=== PATIENT | female | born 1985 | race Caucasian/White ===

== ENCOUNTER 2018-05-27 15:42 | Emergency (ER) | payer SELFPAY ==
[2018-05-27 16:28] LABS: Bilirubin Negative (Negative); Blood, Urine Negative (Negative); Clarity CLEAR (Clear); Glucose, Urine (Dipstick) Negative (Negative); Leukocyte Negative (Negative); Nitrite Negative (Negative); Protein, Urine (Dipstick) Negative (Neg-Trace); Specific Gravity, Urine 1.019 (1.002-1.036); Urobilinogen 0.2 mg/dL (0.2-1.0); pH, Urine 5.5 (5.0-9.0)
[2018-05-27 16:30] LABS: Pregnancy Test - Urine (BHCG) Negative (Negative); Pregu Control Background? CLEAR/WHITE (CLR/WHITE); Pregu Control Bar Appear? YES (CONTROL BAR); Specific Gravity 1.019 (1.002-1.036)
[2018-05-27] MEDS ORDERED: Azithromycin 250 MG TAB ONE (17:33)
[2018-05-27] MEDS ORDERED: Lidocaine 1% (PF) 30 ML VIAL ONE (17:33)
[2018-05-27] MEDS ORDERED: cefTRIAXone\\ROCEPHIN 250 MG VIAL ONE (17:33)
[2018-05-27] MEDS ORDERED: Lidocaine 1% PF 5 ML VIAL ONE (17:37)
[2018-05-31 00:07] LABS: Chlamydia by PCR Not Detected (NotDetected); GC by PCR Not Detected (NotDetected)
== END 2018-05-27 19:23 | disposition home or self-care (01) ==
LOC: ERS 15:42
DX: N76.0 Acute vaginitis (principal); E03.9 Hypothyroidism, unspecified; F17.210 Nicotine dependence, cigarettes, uncomplicated
CPT/HCPCS: 81003; 81025; 87480; 87491; 87510; 87591; 87660; 96372; J0696; J2001

== ENCOUNTER 2018-09-18 04:58 | Emergency (ER) | payer SELFPAY ==
[2018-09-18 05:16] LABS: Bilirubin Negative (Negative); Blood, Urine Negative (Negative); Clarity Slightly Cloudy (Clear); Glucose, Urine (Dipstick) Negative (Negative); Leukocyte Negative (Negative); Nitrite Negative (Negative); Protein, Urine (Dipstick) Negative (Neg-Trace); Specific Gravity, Urine 1.025 (1.005-1.030); Urobilinogen 0.2 mg/dL (0.2-1.0); pH, Urine 5.5 (5.0-9.0)
[2018-09-18 05:17] LABS: Pregu Control Background? CLEAR/WHITE (CLR/WHITE); Pregu Control Bar Appear? YES (CONTROL BAR); Specific Gravity 1.025 (1.002-1.036)
[2018-09-18 05:18] LABS: Pregnancy Test - Urine (BHCG) Negative (Negative)
== END 2018-09-18 05:26 | disposition home or self-care (01) ==
LOC: SCSER 04:58
DX: N76.0 Acute vaginitis (principal); E03.9 Hypothyroidism, unspecified; F17.210 Nicotine dependence, cigarettes, uncomplicated
CPT/HCPCS: 81003; 81025; 99283

== ENCOUNTER 2018-11-28 16:33 | Emergency (ER) | payer SELFPAY ==
[2018-11-28 16:57] LABS: Bilirubin Negative (Negative); Blood, Urine Negative (Negative); Clarity CLEAR (Clear); Glucose, Urine (Dipstick) Negative (Negative); Leukocyte Negative (Negative); Nitrite Negative (Negative); Protein, Urine (Dipstick) Negative (Neg-Trace); Specific Gravity, Urine 1.026 (1.002-1.036); Urobilinogen 0.2 mg/dL (0.2-1.0); pH, Urine 5.5 (5.0-9.0)
[2018-11-28 17:02] LABS: Pregnancy Test - Urine (BHCG) Negative (Negative); Pregu Control Background? CLEAR/WHITE (CLR/WHITE); Pregu Control Bar Appear? YES (CONTROL BAR); Specific Gravity 1.026 (1.002-1.036)
== END 2018-11-28 21:08 | disposition left against medical advice (07) ==
LOC: ERS 16:33
DX: Z53.21 Procedure and treatment not carried out due to patient leaving prior to being seen by health care provider (principal)
CPT/HCPCS: 81003; 81025

== ENCOUNTER 2018-12-21 21:12 | Emergency (ER) | payer SELFPAY | END 2018-12-21 22:02 | disposition left against medical advice (07) | LOC: ERS 21:12 | DX: Z53.21 Procedure and treatment not carried out due to patient leaving prior to being seen by health care provider (principal) ==

== ENCOUNTER 2018-12-22 05:14 | Emergency (ER) | payer SELFPAY ==
[2018-12-22] MEDS ORDERED: Acetaminophen 500 MG TAB ONE (05:27)
== END 2018-12-22 06:11 | disposition home or self-care (01) ==
LOC: SCSER 05:14
DX: J10.1 Influenza due to other identified influenza virus with other respiratory manifestations (principal); F17.210 Nicotine dependence, cigarettes, uncomplicated
CPT/HCPCS: 87081; 87430; 87804; 99406

== ENCOUNTER 2019-07-07 13:58 | Emergency (ER) | payer SELFPAY | END 2019-07-07 15:16 | disposition home or self-care (01) | LOC: SCSER 13:58 | DX: N89.8 Other specified noninflammatory disorders of vagina (principal); F17.210 Nicotine dependence, cigarettes, uncomplicated | CPT/HCPCS: 99281 ==

== ENCOUNTER 2019-07-09 15:11 | Emergency (ER) | payer SELFPAY ==
[2019-07-09] MEDS ORDERED: Lidocaine 1% PF 5 ML VIAL ONE (20:07)
[2019-07-09] MEDS ORDERED: cefTRIAXone\\ROCEPHIN 250 MG VIAL ONE (20:07)
[2019-07-09] MEDS ORDERED: Azithromycin 250 MG TAB ONE (20:07)
[2019-07-10 00:40] LABS: Chlamydia by PCR Not Detected (NotDetected); GC by PCR Not Detected (NotDetected)
== END 2019-07-09 20:31 | disposition home or self-care (01) ==
LOC: ERS 15:11
DX: N76.0 Acute vaginitis (principal); F17.210 Nicotine dependence, cigarettes, uncomplicated
CPT/HCPCS: 87480; 87491; 87510; 87591; 87660; 96372; 99283; J0696; J2001